=== PATIENT | male | born 1945 | race Caucasian/White ===

== ENCOUNTER 2024-09-03 00:57 | Outpatient (CLI) | payer OTHER, SELFPAY ==
--- NOTE | 2024-09-03 | DI.CT_ITS ---
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 TECHNIQUE: Imaging Protocol: Axial computed tomography images with coronal and sagittal reformatted images were created and reviewed CONTRAST MATERIAL: Intravenous: Omnipaque 350 Contrast volume:100 ml Oral: Yes. Oral contrast was also administered for bowel opacification. COMPARISON: No exams were available for comparison FINDINGS: CHEST: LUNGS: There are no infiltrates nor pleural effusions nor significant pulmonary nodules.. MEDIASTINUM: There is no hilar nor mediastinal adenopathy. Visualized thyroid unremarkable. CARDIAC: Heart size is normal. There is no pericardial effusion.Caliber of the thoracic aorta is wit hin normal limits. OSSEOUS: No significant osseous lesions.. ABDOMEN: There is no ascites. LIVER: Multiple well-defined hypodensities in both lobes of the liver measuring to 0.9 cm size and rose ving the appearance of benign cysts. There is, however, 1 lesion in the liver which does not have th e appearance of a simple cyst, this being located superiorly posteriorly/subcapsular just below the h emidiaphragm in the right hepatic lobe and measuring approximately 1.2 by 1.0 cm GALLBLADDER/BILIARY: No obvious gallbladder pathology. CBD is not dilated. PANCREAS: No evidence of pancreatic mass nor dilatation of the pancreatic duct. SPLEEN: Spleen is not enlarged. There are no intrasplenic lesions. Splenic and portal veins are tate nt. ADRENALS: No significant adrenal masses noted. KIDNEYS: No calculi nor hydronephrosis. No solid renal masses. No cysts evident. ABDOMINAL AORTA: Abdominal aorta is not enlarged. LYMPH NODES: There is no retroperitoneal nor paraaortic adenopathy. ABDOMINAL WALL: No evidence of significant anterior abdominal wall nor inguinal hernia. GI: There is no evidence of small-bowel obstruction. Oral contrast has reached the distal colon at t he time of image acquisition. Terminal ileum exhibits normal diameter. One slightly prominent right lower quadrant small bowel loop is noted which exhibits diameter 2.7 cm but there is no obvious mass at this level. Possible anastomosis site. There is no streaking in the mesentery in this region an d no regional lymphadenopathy evident. PELVIS: LYMPH NODES: There is no intrapelvic nor inguinal adenopathy. GI: Appendix not seen and may be surgically absent.No evidence of significant sigmoid diverticular di sease. URINARY BLADDER: Bladder is small. There is uniform thickening of the bladder wall which is probably related to under distension. REPRODUCTIVE: Prostate is enlarged measuring 6.5 cm wide by 5.5 cm AP. There is no obturator adenopa thy. No iliac adenopathy. OSSEOUS: No significant osseous lesions. IMPRESSION: 1. No significant intrathoracic findings. No evidence of metastatic intrathoracic disease. 2. Multiple small sub cm cyst in the liver. However, there is a single lesion in the liver measuring 12 x 10 mm located subcapsular in the superior-posterior aspect of the right hepatic lobe which is d enser than typical cyst. Recommend further imaging with MRI for added specificity. 3. Benign-appearing right lower quadrant findings as described above. There is no obvious mass in th e right lower quadrant small bowel loops and no mesenteric mass nor lymphadenopathy. 4. Enlarged prostate gland with measurements as above. The urinary bladder is not distended. RADIATION DOSE DELIVERED: 442.24mGy.cm Total DLP DATA REPOSITORY: All CT scans at this facility are submitted to the National Radiology Data Registry (NRDR) Dose Index Registry (DIR) with the [employer] ([employer]). RADIATION OPTIMIZATION: All CT scans at this facility use at least one of these dose optimization te chniques: automated exposure control; mA and/or kV adjustment per patient size (includes targeted exa ms where dose is matched to clinical indication); or iterative reconstruction.
[2024-09-03] MEDS: Barium Sulfate 2% W/V-Berry Smoothie 450 ML BTL PO ×2 (12:02)
[2024-09-03 12:04] LABS: CREATININE 0.9 mg/dL (0.70-1.30)
[2024-09-03] MEDS: Normal Saline - Diluent 50 ML VIAL IJ (13:56)
[2024-09-03] MEDS: Omnipaque 350 MG/ML 100 ML BTL IJ (13:58)
== END 2024-09-03 01:17 ==
PROVIDERS: Visit Provider Student in an Organized Health Care Education/Training Program
DX: C7A.012 Malignant carcinoid tumor of the ileum (principal); K76.89 Other specified diseases of liver
CPT/HCPCS: 74177; 71260; 82565; J3490

== ENCOUNTER 2024-10-22 01:00 | Outpatient (CLI) | payer OTHER, SELFPAY ==
--- NOTE | 2024-10-22 | DI.MRI_ITS ---
Exam(s) MR BRAIN WO/W EXAM: MR BRAIN WO/W CLINICAL HISTORY: MILD COGNITIVE IMPAIRMENT OF UNKNOWN ETIOLOGY,[id number] TECHNIQUE: Multiplanar multisequence MRI of the brain was performed. Both noninfused and contrast i nfused sequences were performed. IV Contrast injected was 16 cc Dotarem. COMPARISON: No exams were available for comparison FINDINGS: CEREBRAL PARENCHYMA: No evidence of intracranial hemorrhage, mass effect nor shift of midline structu re. No extraaxial fluid collections. Ventricular size is age-appropriate. There is no significant focal signal abnormality in the cerebellar hemispheres nor within the danita, m idbrain, and thalami. There is bilateral periventricular signal abnormality multiple FLAIR bright foci of signal abnormalit y consistent chronic small vessel disease. This is relatively symmetrical bilaterally with the excep tion of an area of gyral signal abnormality in the left occipital parietal region which exhibits FLAI R bright signal abnormality but not associated with restricted diffusion, hemorrhage, nor enhancement . DWI: No areas of restricted diffusion to suggest acute ischemic event. SWI: No microhemorrhages evident. There are no ring enhancing lesions in the brain. There is no abnormal meningeal enhancement. PITUITARY GLAND: No mass nor parasellar abnormality. No obvious abnormality in the cavernous sinuses. FLOW VOIDS: The expected flow void are noted. No evidence of obvious aneurysm nor obvious vascular ma lformation. PARANASAL SINUSES: There is mild mucosal thickening in all the paranasal sinuses without associated f luid levels therein. Also mild fluid noted in left-sided mastoid air cells. ORBITS: No obvious abnormal findings. IMPRESSION: 1. There is a moderate amount of bilateral periventricular and supra ventricular signal abnormality c onsistent with chronic small vessel disease. There is also an asymmetric area of signal abnormality in the left occipital parietal region which is also not associated with hemorrhage, surrounding edema , enhancement, nor restricted diffusion and is probably also chronic ischemic sequela. 2. No abnormal enhancing intracranial findings. There are no ring enhancing lesions in the brain and there is no abnormal meningeal enhancement. 3. Ventricular size appears age-appropriate. The amount of involutional change appears age-appropri ate. DATA REPOSITORY:
[2024-10-22] MEDS: Gadoterate meglumine 20 ML VIAL IVP (10:33)
[2024-10-22] MEDS: Normal Saline Flush 10 ML SYR IJ (10:36)
== END 2024-10-22 01:20 ==
PROVIDERS: PCP Physician Assistant; Visit Provider Physician Assistant
DX: I25.85 Chronic coronary microvascular dysfunction (principal)
CPT/HCPCS: 70553

== ENCOUNTER 2025-04-30 14:15 | Emergency (ER) | payer OTHER, SELFPAY ==
[2025-04-30] VITALS (88 sets, daily range): BP systolic 135–151; BP diastolic 69–98; PULSE 65–128; RESP 16; TEMP 36.6; O2SAT 94–98
--- NOTE | 2025-04-30 14:15 | RT.EKG_ITS ---
APPROVED REPORT Exam: Resting ECG Reason for Exam: syncope Patient Location: E HR:113 bpm ECG Measurements Heart Rate [address] [id number] P [id number] QRSd 95 QRS 66 QT 376 T -6 QTc 516 Conclusion Atrial fibrillation 113 long QTC no stemi
[2025-04-30] MEDS: dilTIAZem 25 MG/5 ML VIAL 10 MG IVP (14:32)
[2025-04-30] MEDS: Normal Saline 500 ML IV (14:33)
[2025-04-30 14:39] LABS: Abs Immature Grans 0.02 10^3/uL (0.0-0.06); Absolute Basophil Count 0.06 10^3/uL (0.0-0.2); Absolute Eosinophil Count 0.05 10^3/uL (0.0-0.7); Absolute Lymphocyte Count 1.35 10^3/uL (1.2-3.4); Absolute Monocyte Count 0.84 10^3/uL (0.1-0.8); Absolute Neutrophil Count 6.01 10^3/uL (1.2-6.7); Basophils % 0.7 %; Eosinophils % 0.6 %; HCT 44.2 % (40.0-50.0); HGB 15.1 g/dL (13.5-17.5); Immature Grans % 0.2 %; Lymphocytes % 16.2 %; MCH 28.5 pg (27.0-33.0); MCHC 34.2 % (32.0-36.0); MCV 84 fL (80-95); Monocytes % 10.1 %; Neutrophils % 72.2 %; Platelet Count 370 10^3/uL (130-400); RBC 5.29 10^6/uL (4.36-5.78); RDW 12.7 % (11.8-14.1); RDW-SD 38.7 fL; WBC 8.33 10^3/uL (4.4-10.8)
--- NOTE | 2025-04-30 14:59 | W.ED.GENAD ---
Discharge Plan Disposition Patient Disposition: Home Discharge Details Clinical Impression: Acute dehydration, Vasovagal episode, Atrial fibrillation with RVR Primary Care Provider: Katlin Hamilton ED Provider: Susannah Lang Home Meds and New Rx's Prescriptions: No Action multivitamin 1 EACH tablet 1 ea PO DAILY coenzyme Q10 100 MG capsule 100 mg PO DAILY cetirizine [Zyrtec] 10 MG tablet 10 mg PO DAILY PRN Patient Comments: not recently aspirin [Aspir-81] 81 MG tablet,delayed release (DR/EC) 81 mg PO DAILY Qty: 30 hydrochlorothiazide 25 mg tablet 25 mg PO DAILY bisoprolol fumarate 10 mg tablet 10 mg PO DAILY donepezil [Aricept] 10 mg tablet 20 mg PO DAILY Discharge Instructions Additional Instructions: Please make sure that you are drinking lots of fluids including water, Gatorade or Pedialyte to stay hydrated. Especially if you are outside in the warmer weather Continue all of your medications as prescribed Please follow-up with PCP for reevaluation of any ongoing symptoms or if you continue to notice poor oral intake. HPI General Date/Time Provider Initiated Documentation: 04/30/25 14:23. Limitations to Documentation: altered mental status (Dementia) and other (Lack of caregiver present). Information obtained by: patient and EMS. HPI Narrative: 79-year-old gentleman with past medical history of A-fib and dementia presents for evaluation after syncopal episode. EMS reports that was taking him to urgent care today because he had not been feeling well for the last few days. He reports very poor appetite, no vomiting or diarrhea. Denies any chest pain or shortness of breath. He was sitting on the steps when he was putting on his shoes and when he sat up, he apparently passed out. was sitting next to him and helped lay him down. He did not hit his head or have any injuries since he did not fall down. EMS reports on their arrival he was still laying down. He was tachycardic. Not hypotensive. Related Data Home Medications ?Medication ?Instructions ?Recorded ?Confirmed coenzyme Q10 100 mg capsule 100 mg PO DAILY 02/01/13 04/30/25 multivitamin 1 ea PO DAILY 02/01/13 04/30/25 cetirizine 10 mg tablet (Zyrtec) 10 mg PO DAILY PRN 03/27/13 04/30/25 aspirin 81 mg tablet,delayed 81 mg PO DAILY #30 tab-caps 02/09/16 04/30/25 release (Aspir-) bisoprolol fumarate 10 mg tablet 10 mg PO DAILY 04/30/25 04/30/25 donepezil 10 mg tablet (Aricept) 20 mg PO DAILY 04/30/25 04/30/25 hydrochlorothiazide 25 mg tablet 25 mg PO DAILY 04/30/25 04/30/25 Allergies Allergy/AdvReac Type Severity Reaction Status Date / Time acetaminophen Allergy HIVES Unverified 04/16/16 21:18 General Stated Complaint: Dizzy/Sync DENISHA: 3 Exam Narrative Exam Narrative: Review of Systems: All systems reviewed & are unremarkable except as noted in HPI and below Well-developed, no acute distress NCAT PERRL, normal conjunctiva Dry mucous membranes RRR tachycardic, irregularly irregular Unlabored respiratory effort, clear bilaterally Nondistended abdomen , soft nontender Extremities w/o edema no focal neurologic deficits Appropriate mood and affect Course Vital Signs Vital signs: Vital Signs Temperature 36.6 C 04/30/25 14:18 Pulse 128 H 04/30/25 14:18 Respiratory Rate 16 04/30/25 14:18 Blood Pressure 148/98 H 04/30/25 14:18 Pulse Oximetry 96 04/30/25 14:18 Temperature 36.6 C 04/30/25 14:18 Pulse 76 04/30/25 14:44 Pulse Rhythm Irregular 04/30/25 14:44 Pulse Strength Normal 04/30/25 14:44 Pulse 117 H 04/30/25 14:21 Respiratory Rate 16 04/30/25 14:26 Respiratory Effort Normal, Non-Labored 04/30/25 14:26 Respiratory Depth Normal 04/30/25 14:26 Respiratory Pattern Normal 04/30/25 14:26 Blood Pressure 151/73 H 04/30/25 14:44 Blood Pressure Mean 99 04/30/25 14:44 Blood Pressure Position Supine 04/30/25 14:44 Pulse Oximetry 97 04/30/25 14:44 Oxygen Delivery Method Room Air 04/30/25 14:44 Oxygen Flow Rate 0 04/30/25 14:44 Lab/Test Results Lab/Test Results: Laboratory Tests Range/Units 04/30/25 14:20 WBC (4.4-10.8) 10^3/uL 8.33 RBC (4.36-5.78) 10^6/uL 5.29 Hgb (13.5-17.5) g/dL 15.1 Hct (40.0-50.0) % 44.2 MCV (80-95) fL 84 MCH (27.0-33.0) pg 28.5 MCHC (32.0-36.0) % 34.2 RDW (11.8-14.1) % 12.7 Plt Count (130-400) 10^3/uL 370 MPV (8.0-11.0) fL 11.0 Immature Gran % % 0.2 Neutrophils % % 72.2 Lymphocytes % % 16.2 Monocytes % % 10.1 Eosinophils % % 0.6 Basophils % % 0.7 Nucleated RBC % (0.0-0.3) % 0.0 Absolute Neutrophils (1.2-6.7) 10^3/uL 6.01 Absolute Lymphocytes (1.2-3.4) 10^3/uL 1.35 Absolute Monocytes (0.1-0.8) 10^3/uL 0.84 H Absolute Eosinophils (0.0-0.7) 10^3/uL 0.05 Absolute Basophils (0.0-0.2) 10^3/uL 0.06 Medical Decision Making Emergent evaluation after syncopal episode. Initial differential includes cardiac dysrhythmia, electrolyte abnormality or dehydration, vasovagal episode, orthostatic episode. Patient has had poor oral intake for the last few days. He is not hypotensive here but he is in A-fib with RVR. EKG reviewed and independently interpreted: A-fib 113 no STEMI. Plan for rate control, electrolytes, and some gentle fluids. Lab work reviewed. There is no leukocytosis or anemia. Electrolytes no significant derangement. Urinalysis reveals a significant amount of ketones but no sign of infection. After some IV fluids, he does feel much better. He received IV diltiazem for rate control. He was able to get up and walk around and did not feel lightheaded or dizzy. I suspect that he has had poor oral intake over the last few days and has become slightly dehydrated and given how hard it was outside today I suspect this is the etiology of his syncopal episode. He is drinking fluids and would like to go home. At this time I feel is safe for discharge. Recommend close follow-up with PCP as needed PFSH All Active Problems (Updated 04/30/25 @ 16:58 by Susannah Lang MD) Atrial fibrillation with RVR (Acute) Vasovagal episode (Acute) Acute dehydration (Acute) Family History Mother No problems noted. Father Heart disease Brother Personal history of malignant neoplasm PROSTATE Brother No problems noted. Grandfather Heart disease Grandfather No problems noted. Grandmother No problems noted. Grandmother No problems noted. Sister Personal history of malignant neoplasm LUNG Sister No problems noted. Sister No problems noted. Sister No problems noted. Brother Personal history of malignant neoplasm PROSTATE Daughter No problems noted. Daughter Diabetes Social History Smoking/Tobacco Use Status: Former Tobacco Use Smoking risk assessment performed?: Yes Alcohol Intake: current Alcohol Intake frequency: holidays/special occasions only Drug use: Never Housing: house
[2025-04-30 15:00] LABS: ALT 28 U/L (16-63); AST 31 U/L (15-37); Albumin 3.9 g/dL (3.4-5.0); Alkaline Phosphatase 71 U/L (46-116); Anion Gap 11.6 mmol/L (3-11); BUN 18 mg/dL (7-18); CO2 28.4 mmol/L (21.0-32.0); CREATININE 0.9 mg/dL (0.70-1.30); Calcium 9.3 mg/dL (8.5-10.1); Chloride 101 mmol/L (98-107); Glucose 129 mg/dL (74-106); Potassium 3.5 mmol/L (3.5-5.1); Sodium 141 mmol/L (136-145); Total Protein 7.6 g/dL (6.4-8.2); Troponin I 7 ng/L (<or=76)
[2025-04-30 15:05] LABS: TSH 1.53 uIU/mL (0.36-3.74)
[2025-04-30 15:56] LABS: Troponin I 6 ng/L (<or=76)
[2025-04-30 16:16] LABS: Bilirubin Small (Negative); Blood Negative (Negative); Clarity Clear (Clear); Glucose Negative (Negative); Ketones >=160 mg/dL (Negative); Leukocyte Esterase Negative (Negative); Nitrite Negative (Negative); Specific Gravity 1.025 (1.005-1.025); Urobilinogen 0.2 mg/dL (Up to 0.2)
[2025-04-30] MEDS: Normal Saline 1,000 ML 1000 ML IV (16:33)
== END 2025-04-30 18:14 | disposition home or self-care (01) ==
PROVIDERS: Emergency Provider Emergency Medicine; PCP Physician Assistant
DX: E86.0 Dehydration (principal); R55 Syncope and collapse; I48.91 Unspecified atrial fibrillation; F03.90 Unspecified dementia, unspecified severity, without behavioral disturbance, psychotic disturbance, mood disturbance, and anxiety; Z79.82 Long term (current) use of aspirin; Z87.891 Personal history of nicotine dependence
CPT/HCPCS: 36415; 80053; 93005; 96361; 96374; 99284; 81003; 83735; 84443; 84484; 85025; 93010